=== PATIENT | male | born 1990 ===

== ENCOUNTER 2017-12-15 16:36 | Emergency (ER) | payer MEDICAID ==
[2017-12-15 16:55] VITALS: RESP 18; TEMP 99; O2SAT 98
[2017-12-15] MEDS ORDERED: Bacitracin 500 Units/gm Oint Foilpak UD TOP ONE (17:23)
--- NOTE | 2017-12-15 17:27 | C.PDOC ---
History Of Present Illness 27-year-old male, presents to the emergency department with complaints of a painful lump to the occipital scalp. Patient denies any discharge or trauma. Time Seen by Provider: 12/15/17 17:11 Chief Complaint (Nursing): Abnormal Skin Integrity History Per: Patient History/Exam Limitations: no limitations Past Medical History Reviewed: Historical Data, Nursing Documentation, Vital Signs Vital Signs: Last Vital Signs Temp 99.0 F 12/15/17 16:54 Pulse 81 12/15/17 16:54 Resp 18 12/15/17 16:54 BP 125/78 12/15/17 17:04 Pulse Ox 98 12/15/17 16:54 Family History: States: No Known Family Hx - Social History Hx Alcohol Use: No Hx Substance Use: No - Immunization History Hx Tetanus Toxoid Vaccination: Yes Hx Influenza Vaccination: No Hx Pneumococcal Vaccination: No Review Of Systems Constitutional: Negative for: Fever Neurological: Negative for: Weakness, Numbness Physical Exam - Physical Exam Appears: Non-toxic, No Acute Distress Skin: Warm, Dry, Other (mature abscess to occipital scalp) Head: Atraumatic, Normacephalic Eye(s): bilateral: Normal Inspection Nose: Normal Oral Mucosa: Moist Lips: Normal Appearing Neck: Normal ROM Respiratory: No Accessory Muscle Use Extremity: Normal ROM, No Deformity Neurological/Psych: Oriented x3, Normal Speech ED Course And Treatment O2 Sat by Pulse Oximetry: 98 Pulse Ox Interpretation: Normal (RA) Reassessment Condition: Improved - Incision & Drainage Of Abscess Procedure: Drained Pus, Probed To Break Up Loculations, Cultures Obtained And Sent To Lab Disposition Counseled Patient/Family Regarding: Studies Performed, Diagnosis, Need For Followup, Rx Given - Disposition Referrals: [facility] [Outside] [facility] [Outside] Disposition: HOME/ ROUTINE Disposition Time: 17:25 Condition: STABLE Additional Instructions: FOLLOW UP WITH PMD IN 2 DAYS FOR RE-EVALUATION. IF SYMPTOMS GET WORSE OR ANY NEW CONCERNING SYMPTOMS DEVELOP RETURN TO ED. Prescriptions: Mupirocin 2% Ointment [Bactroban Ointment] 1 appl TP BID #1 tube Doxycycline Hyclate 1 tab PO BID #20 capsule Instructions: Abscess Incision and Drainage Forms: [employer] (Mongolian) - Clinical Impression Clinical Impression: Abscess - Scribe Statement The provider has reviewed the documentation as recorded by the Scribe (Carol Zhu) All medical record entries made by the Miteshibjudy were at my direction and personally dictated by me. I have reviewed the chart and agree that the record accurately reflects my personal performance of the history, physical exam, medical decision making, and the department course for this patient. I have also personally directed, reviewed, and agree with the discharge instructions and disposition.
[2017-12-15] MEDS ORDERED: Bacitracin 500 Units/gm Oint Foilpak UD ONE (17:58)
[2017-12-15 18:39] VITALS: BP 123/69; PULSE 85
== END 2017-12-15 18:38 | disposition home or self-care (01) ==
LOC: C.ER 16:36
DX: L02.811 Cutaneous abscess of head [any part, except face] (principal)